=== PATIENT | male | born 1955 | race Caucasian/White ===

== ENCOUNTER 2016-05-20 07:45 | Day surgery (SDC) | payer OTHER ==
--- NOTE | ~2016-05-20 | EGD ---
EGD REPORT [facility] [address] [id number] NAME: ATIF PIERRE : 53 STATUS : REG [facility]#: [id number] AGE: 60 ADM/REG DATE : 05/20/16 MR#: [id number] REPORT SERV DATE: 05/20/16 DICTATED BY: MARIA ESTHER MEDINA DATE: 05/20/16 REPORT STATUS : Draft TRANSCRIBED BY: [facility] DATE: 05/20/16 Endoscopy Center Patient Name: Atif Pierre Date of : 1955 Attending MD: MARIA ESTHER MEDINA MD Procedure Date No Time: 05/20/2016 Procedure: Colonoscopy Indications: High risk colon cancer surveillance: Personal history of colonic polyps Referring MD: EDMUND ELLIOTT MD Medicines: as per anesthesia Complications: No immediate complications. Procedure: Pre-Anesthesia Assessment: - ASA Grade Assessment: I - A normal, healthy patient. After I obtained informed consent, the scope was passed under direct vision. Throughout the procedure, the patient's blood pressure, pulse, and oxygen saturations were monitored continuously. The PCF [id number] was introduced through the anus and advanced to the cecum, identified by appendiceal orifice and ileocecal valve. The colonoscopy was performed without difficulty. The patient tolerated the procedure. The quality of the bowel preparation was adequate to identify polyps. Findings: The perianal and digital rectal examinations were normal. Two sessile polyps were found in the sigmoid colon. The polyps were 2 to 3 mm in size. These polyps were removed with a cold biopsy forceps. Resection and retrieval were complete. Internal hemorrhoids were found during endoscopy and were mild. Impression: - Two 2 to 3 mm polyps in the sigmoid colon. Resected and retrieved. - Internal hemorrhoids. Recommendation: - Await pathology results. - Repeat colonoscopy for surveillance based on pathology results. Procedure Code(s): --- Professional --- 83320, Colonoscopy, flexible, proximal to splenic flexure; with biopsy, single or multiple Diagnosis Code(s): --- Professional --- D12.5, Benign neoplasm of sigmoid colon EGD REPORT [facility] [address] [address] NAME: ATIF PIERRE ANIKET : 53 STATUS : [place] [facility] [place] [id number] AGE: 60 ADM/REG DATE : 05/20/16 MR#: [id number] REPORT SERV DATE: 05/20/16 DICTATED BY: MARIA ESTHER MEDINA. DATE: 05/20/16 REPORT STATUS : Draft TRANSCRIBED BY: [employer] DATE: 05/20/16 K64.8, Other hemorrhoids Z86.010, Personal history of colonic polyps CPT copyright 2013 [employer]. All rights reserved. The codes documented in this report are preliminary and upon coffee brewer review may be revised to meet current compliance requirements. MARIA ESTHER MEDINA MD 05/20/2016 9:51 AM This report has been signed electronically. Number of Addenda: 0 Note Initiated On: 05/20/2016 9:19 AM Scope Withdrawal Time 0 hours 10 minutes 54 seconds [address] [id number]
== END 2016-05-20 23:59 | disposition home or self-care (01) ==
LOC: DMU 07:45
PROVIDERS: Internal Medicine Gastroenterology
PROC: 0DBN8ZZ Excision of Sigmoid Colon, Via Natural or Artificial Opening Endoscopic (ICD-10-PCS; principal; 2016-05-20 09:00)
DX: Z12.11 Encounter for screening for malignant neoplasm of colon (principal); Z86.010 Personal history of colon polyps; K64.8 Other hemorrhoids; K63.5 Polyp of colon; H91.93 Unspecified hearing loss, bilateral; Z97.4 Presence of external hearing-aid; Z90.89 Acquired absence of other organs
CPT/HCPCS: 88305